=== PATIENT | male | born 1970 | race Caucasian/White ===

== ENCOUNTER 2018-06-07 00:25 | Inpatient (IN) | payer MEDICAID ==
[~2018-06-07] VITALS: Ht 172.7 cm; Wt 85.3 kg
[2018-06-07 00:33] VITALS: Ht 172.7 cm; Wt 85.3 kg
[2018-06-07 01:04] LABS: BASOPHIL % 0.8 % (0-2)
[2018-06-07 01:10] LABS: PLATELET COUNT 43 x10^3mcL (130-400)
[2018-06-07 01:11] LABS: CALCIUM 7.4 mg/dL (8.5-10.1); CARBON DIOXIDE 26.5 mmol/L (21-32); CHLORIDE SERUM 109 mmol/L (98-107); CREATININE SERUM 0.8 mg/dL (0.7-1.3); GFR1 > 60 mL/min; GLUCOSE SERUM 134 mg/dL (74-106); POTASSIUM SERUM 3.9 mmol/L (3.5-5.1); SODIUM SERUM 142 mmol/L (136-145)
[2018-06-07 01:16] LABS: ALBUMIN 2.1 g/dL (3.4-5.0); ALKALINE PHOSPHATASE 89 U/L (46-116); ALT/SGPT 26 U/L (16-63); AST/SGOT 80 U/L (15-37); TOTAL PROTEIN, SERUM 5.6 g/dL (6.4-8.2)
[2018-06-07 02:56] VITALS: BP 114/67
[2018-06-07 03:42] LABS: FREE T4 0.96 ng/dL (0.76-1.46)
[2018-06-07 03:44] LABS: MAGNESIUM 1.6 mg/dL (1.8-2.4); PHOSPHOROUS 4.2 mg/dL (2.5-4.9)
[2018-06-07 03:48] LABS: FREE THYROXINE INDEX 1.6 ug/dL (1.4-4.5); T4(THYROXINE) 4.2 ug/dL (4.7-13.3)
[2018-06-07 04:11] LABS: T3 TOTAL 0.96 ng/mL
[2018-06-07 05:51] LABS: BASOPHIL % 0.5 % (0-2); RED CELL DISTRIBUTION WIDTH 13.8 % (11.5-14.5)
[2018-06-07 05:52] LABS: PLATELET COUNT 33 x10^3mcL (130-400)
[2018-06-07 05:55] LABS: CALCIUM 6.8 mg/dL (8.5-10.1); CARBON DIOXIDE 25.5 mmol/L (21-32); CHLORIDE SERUM 110 mmol/L (98-107); CREATININE SERUM 0.8 mg/dL (0.7-1.3); GFR1 > 60 mL/min; GLUCOSE SERUM 101 mg/dL (74-106); POTASSIUM SERUM 4.4 mmol/L (3.5-5.1); SODIUM SERUM 141 mmol/L (136-145)
[2018-06-07 07:40] VITALS: BP 104/61
[2018-06-07 11:45] VITALS: BP 93/60
[2018-06-07 14:27] LABS: rbc morphology (normal/abnorm) ABNORMAL (NORMAL)
[2018-06-07 15:42] VITALS: BP 116/77
[2018-06-07 17:16] LABS: BAND NEUTROPHIL 8 % (0-10); BASOPHIL 0 % (0-2); MONOCYTE 10 % (0-7); SEGMENTED NEUTROPHILS 60 % (37-75)
[2018-06-07 17:17] LABS: PLATELET MORPHOLOGY PLATELETS DECREASED; rbc morphology (normal/abnorm) ABNORMAL (NORMAL)
[2018-06-07 17:19] LABS: PLATELET COUNT 43 x10^3mcL (130-400)
[2018-06-07 20:00] VITALS: BP 115/75
[2018-06-08] VITALS: BP 122/89
[2018-06-08 04:00] VITALS: BP 131/87
[2018-06-08 06:31] LABS: CALCIUM 7.2 mg/dL (8.5-10.1); CARBON DIOXIDE 27.7 mmol/L (21-32); CHLORIDE SERUM 104 mmol/L (98-107); CREATININE SERUM 0.8 mg/dL (0.7-1.3); GFR1 > 60 mL/min; GLUCOSE SERUM 132 mg/dL (74-106); MAGNESIUM 1.5 mg/dL (1.8-2.4); PHOSPHOROUS 2.8 mg/dL (2.5-4.9); POTASSIUM SERUM 3.2 mmol/L (3.5-5.1); SODIUM SERUM 136 mmol/L (136-145)
[2018-06-08 07:30] VITALS: BP 135/90
[2018-06-08 12:04] VITALS: BP 103/67
[2018-06-08 13:13] LABS: PLATELET COUNT 25 x10^3mcL (130-400)
[2018-06-08 13:36] LABS: SEGMENTED NEUTROPHILS 16 % (37-75)
[2018-06-08 13:37] LABS: ATYPICAL LYMPH 0 %; BAND NEUTROPHIL 0 % (0-10); MONOCYTE 4 % (0-7)
[2018-06-08 13:38] LABS: BASOPHIL 0 % (0-2); rbc morphology (normal/abnorm) ABNORMAL (NORMAL)
[2018-06-08 13:39] LABS: PLATELET MORPHOLOGY PLATELETS DECREASED
[2018-06-08 15:17] LABS: RED CELL DISTRIBUTION WIDTH 13.8 % (11.5-14.5)
[2018-06-08 15:50] VITALS: BP 135/77
[2018-06-08 16:23] LABS: BAND NEUTROPHIL 0 % (0-10); BASOPHIL 0 % (0-2); MONOCYTE 12 % (0-7); SEGMENTED NEUTROPHILS 64 % (37-75); rbc morphology (normal/abnorm) ABNORMAL (NORMAL)
[2018-06-08 16:26] LABS: PLATELET COUNT 36 x10^3mcL (130-400)
== END 2018-06-09 03:57 | disposition left against medical advice (07) | DRG 280 ==
LOC: ED 00:25 → IC 02:00
PROVIDERS: Emergency Medicine; Family Medicine; Internal Medicine; Internal Medicine Gastroenterology
PROC: 0DB78ZX Excision of Stomach, Pylorus, Via Natural or Artificial Opening Endoscopic, Diagnostic (ICD-10-PCS; principal; 2018-06-07 09:30)
PROC: 06L38CZ Occlusion of Esophageal Vein with Extraluminal Device, Via Natural or Artificial Opening Endoscopic (ICD-10-PCS; 2018-06-07 09:30)
DX: K70.31 Alcoholic cirrhosis of liver with ascites (principal); I85.11 Secondary esophageal varices with bleeding; E43 Unspecified severe protein-calorie malnutrition; D61.818 Other pancytopenia; D69.59 Other secondary thrombocytopenia; E83.51 Hypocalcemia; E83.42 Hypomagnesemia; F10.229 Alcohol dependence with intoxication, unspecified; T51.0X1A Toxic effect of ethanol, accidental (unintentional), initial encounter; I10 Essential (primary) hypertension; E02 Subclinical iodine-deficiency hypothyroidism; R74.0 Nonspecific elevation of levels of transaminase and lactic acid dehydrogenase [LDH]; F17.210 Nicotine dependence, cigarettes, uncomplicated; Z68.28 Body mass index [BMI] 28.0-28.9, adult
CPT/HCPCS: 43205; 43235; 83880; 84439; 90658; 90732; C9113; G0480; J0696; J1610; J2060; J2250; J2310; J2354; J2765; J3010; J3411; J3430; J3475; J3480; J3490; J7030; J7040; J7050; P9016; P9035; Q0092; Q0163